=== PATIENT | female | born 1950 | race Caucasian/White ===

== ENCOUNTER 2019-05-05 18:34 | Emergency (ER) | payer MEDICARE ==
[~2019-05-05] VITALS: Ht 170.2 cm; Wt 90.9 kg
[~2019-05-05 18:34] MED LIST: BYSTOLIC10 MG PO; KLOR-CON M2020 MEQ PO; LASIX 20MG TABL20 MG PO; LIPITOR 10MG10 MG PO; LOPRESSOR 225 MG/TAB PO; PRINIVIL5 MG; ZESTRIL 10MG10 MG PO; ZESTRIL2.5 MG PO; ZITHROMAX Z PA250 MG PO
[2019-05-05 18:43] VITALS: BP 189/92; TEMP 97.9
[2019-05-05 20:50] LABS: ALANINE AMINOTRANSFERASE 27 U/L (9-52); ALBUMIN 4.7 gm/dL (3.5-5.0); ALKALINE PHOSPHATASE 123 U/L (50-136); ANION GAP 8 mmol/L (7-16); AST,SGOT 44 U/L (15-37); BILIRUBIN,TOTAL 0.3 mg/dL (0.0-1.0); BLOOD UREA NITROGEN 16 mg/dL (7-17); CALCIUM 9.3 mg/dL (8.4-10.2); CARBON DIOXIDE 30 mmol/L (22-30); CHLORIDE 103 mmol/L (98-107); CREATININE, serum 1.18 (0.52-1.25); GLUCOSE 97 mg/dL (74-106); POTASSIUM 4.2 mmol/L (3.4-5.0); SODIUM 141 mmol/L (137-145); TOTAL PROTEIN 8.6 gm/dL (6.4-8.2)
[2019-05-05 20:51] LABS: C-REACTIVE PROTEIN < 0.5 mg/dL (0.0-0.9)
[2019-05-05 20:59] LABS: TROPONIN-I < 0.012 ng/mL (0.000-0.035)
[2019-05-05 21:33] LABS: BASO # 0.1 (0.0-0.2); BASO % 0.7 % (0.0-2.0); EOS # 0.6 (0.0-0.7); EOS % 7.6 % (0-4.0); GRAN # 5.6 (1.4-6.5); GRAN % 68.9 % (42.2-75.2); HEMATOCRIT 57.3 % (37.0-47.0); HEMOGLOBIN 19.3 g/dl (12.5-16.0); LYMPH # 1.3 (1.2-3.4); LYMPH % 15.8 % (20.0-51.0); MEAN CELL VOLUME 92 fl (80.0-100.0); MEAN CORPUSCULAR HEMOGLOBIN 31 pg (27.0-31.0); MEAN CORPUSCULAR HGB CONC 34 g/dl (33.0-37.0); MEAN PLATELET VOLUME 10.1 fl (7.4-10.4); MONO # 0.5 (0.1-0.6); MONO % 6.6 % (1.7-9.3); PLATELET COUNT 177 K/mm3 (130-400); RED BLOOD COUNT 6.24 M/mm3 (4.10-5.30); REDCELL DISTRIBUTION WIDTH-CV 12.7 % (11.5-14.5)
[2019-05-05] MEDS ORDERED: ZITHROMAX 250M250 MG PO (22:10)
[2019-05-05] MEDS ORDERED: PREDNISONE20 MG PO (22:10)
[2019-05-05 22:25] VITALS: PULSE 77
[2019-05-05] MEDS ORDERED: IPRATROPIUM BROM3 M1 IH (22:26)
== END 2019-05-05 22:25 | disposition home or self-care (01) ==
LOC: COL.ER 18:34
PROVIDERS: Emergency Medicine
DX: J45.909 Unspecified asthma, uncomplicated (principal); I50.9 Heart failure, unspecified; Z87.891 Personal history of nicotine dependence
CPT/HCPCS: J7512

== ENCOUNTER 2021-05-25 16:45 | Emergency (ER) | payer MEDICARE, BC ==
[~2021-05-25] VITALS: Ht 170.2 cm; Wt 99.5 kg
[~2021-05-25 16:45] MED LIST changes: +IPRATROPIUM BROM3 M1 IH; +PREDNISONE20 MG PO; +ZITHROMAX 250M250 MG PO
[2021-05-25 17:02] VITALS: TEMP 97.6
[2021-05-25 17:43] LABS: BASO # 0.1 K/mm3 (0.0-0.2); BASO % 0.7 % (0.0-2.0); EOS # 0.2 K/mm3 (0.0-0.7); EOS % 3.6 % (0-4.0); GRAN # 4.2 K/mm3 (1.4-6.5); HEMATOCRIT 45.5 % (37.0-47.0); HEMOGLOBIN 15.2 g/dl (12.5-16.0); LYMPH # 1.7 K/mm3 (1.2-3.4); LYMPH % 24.5 % (20.0-51.0); MEAN CELL VOLUME 95 fl (80.0-100.0); MEAN CORPUSCULAR HEMOGLOBIN 32 pg (27.0-31.0); MEAN CORPUSCULAR HGB CONC 33 g/dl (33.0-37.0); MEAN PLATELET VOLUME 9.8 fl (7.4-10.4); MONO # 0.6 K/mm3 (0.1-0.6); MONO % 8.9 % (1.7-9.3); PLATELET COUNT 309 K/mm3 (130-400); RED BLOOD COUNT 4.81 M/mm3 (4.10-5.30)
[2021-05-25 17:52] LABS: ALANINE AMINOTRANSFERASE 41 U/L (0-55); ALBUMIN 4.7 gm/dL (3.4-4.8); ALKALINE PHOSPHATASE 112 U/L (40-150); ANION GAP 14 mmol/L (7-16); AST,SGOT 34 U/L (5-34); BILIRUBIN,TOTAL 0.4 mg/dL (0.2-1.2); BLOOD UREA NITROGEN 13 mg/dL (10-20); CALCIUM 9.8 mg/dL (8.4-10.2); CARBON DIOXIDE 20 mmol/L (23-31); CHLORIDE 106 mmol/L (98-107); CREATININE, serum 0.88 mg/dL (0.57-1.11); GLUCOSE 119 mg/dL (70-99); POTASSIUM 3.5 mmol/L (3.5-4.5); SODIUM 140 mmol/L (136-145); TOTAL PROTEIN 8.3 gm/dL (6.2-8.1)
[2021-05-25 18:09] LABS: TROPONIN-I < 0.010 ng/mL (0.00-0.033)
[2021-05-25] MEDS ORDERED: NORVASC 10MG10 MG PO (20:56)
[2021-05-25] MEDS ORDERED: TOPROL XL200 MG PO (20:56)
[2021-05-25] MEDS ORDERED: FOLIC ACID 11 MG/TA1 PO (20:57)
[2021-05-25] MEDS ORDERED: PRINIVIL40 MG PO (21:00)
[2021-05-25 21:03] LABS: PHOSPHOROUS 3.3 mg/dL (2.3-4.7)
[2021-05-25] MEDS ORDERED: LIPITOR 10MG10 MG PO (21:09)
[2021-05-25] MEDS ORDERED: BREO IH (21:09)
[2021-05-25 21:10] LABS: PARTIAL THROMBOPLASTIN TIME 33.4 SECONDS (26.0-37.0)
[2021-05-25 21:26] LABS: TSH w REFLEX 0.991 uIU/mL (0.350-4.940)
[2021-05-26 03:43] LABS: BASO # 0.1 K/mm3 (0.0-0.2); BASO % 0.7 % (0.0-2.0); EOS # 0.2 K/mm3 (0.0-0.7); EOS % 2.2 % (0-4.0); GRAN # 4.9 K/mm3 (1.4-6.5); GRAN % 67.4 % (42.2-75.2); HEMATOCRIT 45.6 % (37.0-47.0); HEMOGLOBIN 14.4 g/dl (12.5-16.0); LYMPH # 1.4 K/mm3 (1.2-3.4); LYMPH % 19.3 % (20.0-51.0); MEAN CORPUSCULAR HEMOGLOBIN 32 pg (27.0-31.0); MEAN CORPUSCULAR HGB CONC 32 g/dl (33.0-37.0); MEAN PLATELET VOLUME 10.1 fl (7.4-10.4); MONO # 0.7 K/mm3 (0.1-0.6); MONO % 10.1 % (1.7-9.3); PLATELET COUNT 292 K/mm3 (130-400); RED BLOOD COUNT 4.55 M/mm3 (4.10-5.30); REDCELL DISTRIBUTION WIDTH-CV 14.2 % (11.5-14.5)
[2021-05-26 03:47] LABS: MEAN CELL VOLUME 100 fl (80.0-100.0)
[2021-05-26 03:57] LABS: CALCIUM 9.5 mg/dL (8.4-10.2); CREATININE, serum 0.84 mg/dL (0.57-1.11); POTASSIUM 4.5 mmol/L (3.5-4.5)
[2021-05-26 04:02] LABS: PARTIAL THROMBOPLASTIN TIME 31.1 SECONDS (26.0-37.0)
[2021-05-26] MEDS ORDERED: METHOTREXA2.5 MG/TAB PO (06:23)
--- NOTE | 2021-05-26 10:34 | NUR ---
Alarm Security Or Surveillance Monitor met with patient to discuss discharge planning. Patient lives outside of [place] with her , Oli (ph#[phone]) and sees Dr. Moran for primary care. Patient obtains medications from [facility] and advised her COPD inhaler is expensive, but she is able to manage. Patient does not use any DME and is independent with [facility]. Patient advised she has Advance Directives that designate her as DPOA-HC. BRIDGETTE did not locate copy in EMR. BRIDGETTE contacted Debi at [facility] [place] and they also do not have a copy. Patient states she plans to return home upon discharge. Discharge Plan: Home
[2021-05-26] MEDS ORDERED: ELIQUIS 5MG PO (13:57)
[2021-05-26] MEDS ORDERED: CORDARONE200 MG/TAB PO (14:04)
[2021-05-26 14:52] VITALS: BP 121/54; PULSE 89
== END 2021-05-26 15:03 | disposition home or self-care (01) ==
LOC: COL.ER 16:45
PROVIDERS: Nurse Practitioner Family; Student in an Organized Health Care Education/Training Program
DX: I48.91 Unspecified atrial fibrillation (principal); I11.0 Hypertensive heart disease with heart failure; I50.9 Heart failure, unspecified; E78.5 Hyperlipidemia, unspecified; Z79.899 Other long term (current) drug therapy
CPT/HCPCS: 99223-AI; 99239; J1644